=== PATIENT | female | born 1945 | race Caucasian/White ===

== ENCOUNTER 2020-01-26 06:21 | Day surgery (SDC) | payer MEDICARE ==
[~2020-01-26] VITALS: Ht 167.6 cm; Wt 79.6 kg
[~2020-01-26 06:21] MED LIST: AMOCLA875 PO; ASPI325 PO; Amox Tr-K Clv1 EAC2 PO; BUPR150ER PO; Bupropion HCl200 MG PO; HYDROCHLOROTH12.5 MG PO; Pravastatin Sod40 MG PO; ROSU10TA PO; ST. JOSEPH ASPI81 MG; Triamterene W/1 EACH; Unithroid25 MCG PO; Zofran Odt8 MG SL
[2020-01-26] MEDS ORDERED: VITAMIN D32000 UNI1 PO (06:53)
[2020-01-26] MEDS ORDERED: CALCIUM CITRAT250 MG PO (06:53)
== END 2020-01-26 08:13 | disposition home or self-care (01) ==
LOC: ORSCSDS 06:21
PROVIDERS: Ophthalmology
PROC: 08RJ3JZ Replacement of Right Lens with Synthetic Substitute, Percutaneous Approach (ICD-10-PCS; principal; 2020-01-26 07:30)
DX: H25.11 Age-related nuclear cataract, right eye (principal); I10 Essential (primary) hypertension; G47.33 Obstructive sleep apnea (adult) (pediatric); E03.9 Hypothyroidism, unspecified; E78.5 Hyperlipidemia, unspecified; Z79.899 Other long term (current) drug therapy
CPT/HCPCS: J2250; J3010; J3301; J7040; V2632